=== PATIENT | female | born 1950 | race Caucasian/White ===

== ENCOUNTER 2018-09-14 18:11 | Inpatient (IN) | payer MEDICARE, OTHER ==
[~2018-09-14] VITALS: Ht 160 cm; Wt 69.2 kg
--- NOTE | 2018-09-14 18:20 | NUR ---
THIS PT ARRIVES FROM TODAY AFTER HER INTIAL VISIT FOR BILATERAL LEG SWELLING. PT WAS FOUND TO BE IN THE LOW 70%S ON ROOM AIR. PT WAS THEN SENT TO EMERGENCY ROOM. PT REPORTS THAT SHE HAS HAD THE LEGS SWELLING FOR ABOUT A WEEK WITH SOME DAYS BETTER AND SOME WORSE. PT DENIES ANY SOB OR CP AT THIS TIME. PT HAS CYNOSIS OF HANDS AND FEET. PT MICHELLE HAS RAPID BREATHING. PT REPORTS TAKING HER MEDICATIONS PERSCRIBED. PT CONNECTED TO ALL MONITORS AND CALL LIGHT IN REACH. AWAITING FURTHER ORDERS. PIV PLACED AND EKG COMPLETED.
--- NOTE | 2018-09-14 18:25 | NUR ---
BREAK RN: pt upright on gurney awake & comfortable, responds approp to staff, NAD, comfort measures provided, call light within reach.
[2018-09-14 18:34] LABS: BASOPHILS # (AUTO) 0.02 x10^3/uL (0-0.1); BASOPHILS % (AUTO) 0 % (0-1); EOSINOPHILS # (AUTO) 0.11 x10^3/uL (0-0.4); EOSINOPHILS % (AUTO) 2 % (1-7); LYMPHOCYTES % (AUTO) 29 % (22-44); MD NO; MEAN CORPUSCULAR HEMOGLOBIN 30.7 pg (27.0-34.8); MEAN CORPUSCULAR HGB CONC 32.7 g/dL (32.4-35.8); MEAN CORPUSCULAR VOLUME 93.9 fL (80-100); MEAN PLATELET VOLUME 8.4 fL (7.4-10.4); MONOCYTES # (AUTO) 0.53 x10^3/uL (0.2-0.8); MONOCYTES % (AUTO) 7 % (2-9); NEUTROPHILS # (AUTO) 4.48 x10^3/uL (1.8-6.8); NEUTROPHILS % (AUTO) 62 % (42-75); PLATELET COUNT 188 x10^3/uL (130-400); RED BLOOD COUNT 6.61 x10^6/uL (3.82-5.3); RED CELL DISTRIBUTION WIDTH 17.4 % (9.6-15.2)
[2018-09-14] MEDS ORDERED: ESTR42.58 VG (18:36)
[2018-09-14] MEDS ORDERED: GABA300C10 PO (18:36)
[2018-09-14] MEDS ORDERED: CARB1TAB22 PO (18:36)
[2018-09-14] MEDS ORDERED: ESCI20TA PO (18:36)
[2018-09-14] MEDS ORDERED: DICLOFENAC TP (18:36)
[2018-09-14] MEDS ORDERED: TEMA30CA PO (18:36)
[2018-09-14] MEDS ORDERED: ALPR1TAB5 PO (18:36)
[2018-09-14] MEDS ORDERED: CYCLOBENZAPINE PO (18:36)
[2018-09-14 18:43] LABS: ALBUMIN 3.6 g/dL (3.4-5.0); ANION GAP 4 mmol/L (5-15); CALCIUM 9.5 mg/dL (8.5-10.1); CHLORIDE 106 mmol/L (98-107)
[2018-09-14 18:50] LABS: ALANINE AMINOTRANSFERASE 61 U/L (12-78); ALKALINE PHOSPHATASE 317 U/L (45-117); BILIRUBIN,TOTAL 0.9 mg/dL (0.2-1.0); CREATININE 0.85 mg/dL (0.55-1.02); TOTAL PROTEIN 8.1 g/dL (6.4-8.2); TROPONIN I 0.027 ng/mL (0.000-0.045)
[2018-09-14] MEDS ORDERED: LABETALOL 5 MG/ML SYRINGE IVPush PRN (20:30)
[2018-09-14] MEDS ORDERED: ONDANSETRON ODT 4 MG PO PRN (20:30)
--- NOTE | 2018-09-14 20:32 | NUR ---
PT GIVEN A SNACK. PT TO BE ADMITTED. VSS. PT HAS NO OTHER NEEDS AT THIS TIME. CALL LIGHT IN REACH
[2018-09-14 21:31] VITALS: BP 158/117
[2018-09-14] MEDS: ENOXAPARIN 40 MG/0.4 ML SQ SCH (21:33)
[2018-09-14] MEDS: NICOTINE 14MG/24 HR PATCH.TD24 TD SCH (21:33)
[2018-09-14] MEDS: FUROSEMIDE 40 MG/4 ML IV SCH (21:33)
[2018-09-14] MEDS: ACETAMINOPHEN 325 MG TABLET PO PRN (23:28)
[2018-09-14] MEDS: LIDODERM 5% PATCH TD PRN (23:29)
[2018-09-14 23:33] VITALS: BP 134/78
[2018-09-15 00:52] VITALS: BP 146/82
[2018-09-15 01:06] LABS: TROPONIN I 0.042 ng/mL (0.000-0.045)
[2018-09-15 06:20] VITALS: BP 138/79
[2018-09-15 07:33] LABS: BASOPHILS # (AUTO) 0.02 x10^3/uL (0-0.1); BASOPHILS % (AUTO) 0 % (0-1); EOSINOPHILS # (AUTO) 0.17 x10^3/uL (0-0.4); EOSINOPHILS % (AUTO) 3 % (1-7); LYMPHOCYTES # (AUTO) 1.79 x10^3/uL (1-3.4); LYMPHOCYTES % (AUTO) 30 % (22-44); MD NO; MEAN CORPUSCULAR HEMOGLOBIN 30.8 pg (27.0-34.8); MEAN CORPUSCULAR HGB CONC 32.8 g/dL (32.4-35.8); MEAN CORPUSCULAR VOLUME 93.9 fL (80-100); MEAN PLATELET VOLUME 7.8 fL (7.4-10.4); MONOCYTES % (AUTO) 9 % (2-9); NEUTROPHILS # (AUTO) 3.41 x10^3/uL (1.8-6.8); NEUTROPHILS % (AUTO) 58 % (42-75); PLATELET COUNT 184 x10^3/uL (130-400); RED BLOOD COUNT 6.11 x10^6/uL (3.82-5.3); RED CELL DISTRIBUTION WIDTH 17.1 % (9.6-15.2)
[2018-09-15 07:43] LABS: ANION GAP 6 mmol/L (5-15); CALCIUM 8.7 mg/dL (8.5-10.1); CHLORIDE 108 mmol/L (98-107)
[2018-09-15 07:49] LABS: CREATININE 0.79 mg/dL (0.55-1.02)
[2018-09-15] MEDS: FUROSEMIDE 40 MG/4 ML IV SCH ×2 (08:44→16:38)
[2018-09-15] MEDS ORDERED: TEMPLATE NON-FORMULARY MED. (Escitalopram Oxalate** 20 MG) PO SCH (11:00)
[2018-09-15] MEDS ORDERED: TEMAZEPAM 30 MG CAPSULE PO PRN (11:00)
[2018-09-15] MEDS: GABAPENTIN 400 MG CAPSULE PO SCH ×3 (11:34→20:15)
[2018-09-15] MEDS: CARBIDOPA/LEVODOPA 25 MG/100 MG TABLET PO SCH ×3 (11:34→20:15)
[2018-09-15] MEDS: ACETAMINOPHEN 325 MG TABLET PO PRN ×2 (12:41→20:15)
[2018-09-15 13:23] LABS: AMPHETAMINE SCREEN, URINE Negative (Negative); BARBITURATE SCREEN, URINE Negative (Negative); BENZODIAZEPINE SCREEN, URINE Negative (Negative); CANNABINOID SCREEN, URINE Negative (Negative); COCAINE SCREEN, URINE Negative (Negative); METHADONE SCREEN, URINE Negative (Negative); OPIATE SCREEN, URINE Negative (Negative)
[2018-09-15 13:46] VITALS: BP 112/68
[2018-09-15 14:25] VITALS: BP 159/78
[2018-09-15 19:57] VITALS: BP 103/65
[2018-09-15] MEDS: ENOXAPARIN 40 MG/0.4 ML SQ SCH (20:13)
[2018-09-15] MEDS: NICOTINE 14MG/24 HR PATCH.TD24 TD SCH (20:15)
[2018-09-16 00:25] VITALS: BP 117/69
[2018-09-16] MEDS: ACETAMINOPHEN 325 MG TABLET PO PRN ×3 (02:30→21:13)
[2018-09-16 05:59] LABS: BASOPHILS # (AUTO) 0.02 x10^3/uL (0-0.1); BASOPHILS % (AUTO) 0 % (0-1); EOSINOPHILS # (AUTO) 0.08 x10^3/uL (0-0.4); EOSINOPHILS % (AUTO) 1 % (1-7); LYMPHOCYTES # (AUTO) 1.97 x10^3/uL (1-3.4); LYMPHOCYTES % (AUTO) 28 % (22-44); MD NO; MEAN CORPUSCULAR HEMOGLOBIN 30.4 pg (27.0-34.8); MEAN CORPUSCULAR HGB CONC 32.6 g/dL (32.4-35.8); MEAN CORPUSCULAR VOLUME 93.4 fL (80-100); MEAN PLATELET VOLUME 7.8 fL (7.4-10.4); MONOCYTES % (AUTO) 7 % (2-9); NEUTROPHILS # (AUTO) 4.39 x10^3/uL (1.8-6.8); NEUTROPHILS % (AUTO) 63 % (42-75); PLATELET COUNT 179 x10^3/uL (130-400); RED BLOOD COUNT 6.16 x10^6/uL (3.82-5.3); RED CELL DISTRIBUTION WIDTH 16.9 % (9.6-15.2)
[2018-09-16 06:08] LABS: CHLORIDE 105 mmol/L (98-107)
[2018-09-16 06:13] LABS: ANION GAP 7 mmol/L (5-15); CALCIUM 8.5 mg/dL (8.5-10.1); CREATININE 0.67 mg/dL (0.55-1.02)
[2018-09-16 07:36] VITALS: BP 134/78
[2018-09-16] MEDS: FUROSEMIDE 40 MG/4 ML IV SCH ×2 (07:55→18:11)
[2018-09-16] MEDS: GABAPENTIN 400 MG CAPSULE PO SCH ×3 (07:56→20:06)
[2018-09-16] MEDS ORDERED: POTASSIUM CHLORIDE 20 MEQ TAB.ER.PRT PO ONE (08:00)
[2018-09-16] MEDS: ASPIRIN 81 MG TABLET EC PO SCH (08:11)
[2018-09-16] MEDS: CARBIDOPA/LEVODOPA 25 MG/100 MG TABLET PO SCH ×3 (08:11→20:06)
[2018-09-16] MEDS: CITALOPRAM 20 MG TABLET PO SCH (10:59)
[2018-09-16 13:05] VITALS: BP 118/73
[2018-09-16] MEDS: NICOTINE 14MG/24 HR PATCH.TD24 TD SCH (14:39)
[2018-09-16 19:14] VITALS: BP 125/75
[2018-09-16] MEDS: ENOXAPARIN 40 MG/0.4 ML SQ SCH (20:06)
[2018-09-17 01:24] VITALS: BP 136/74
[2018-09-17 05:18] LABS: BASOPHILS # (AUTO) 0.04 x10^3/uL (0-0.1); BASOPHILS % (AUTO) 1 % (0-1); EOSINOPHILS # (AUTO) 0.09 x10^3/uL (0-0.4); EOSINOPHILS % (AUTO) 1 % (1-7); LYMPHOCYTES # (AUTO) 2.22 x10^3/uL (1-3.4); LYMPHOCYTES % (AUTO) 34 % (22-44); MD NO; MEAN CORPUSCULAR HEMOGLOBIN 30.5 pg (27.0-34.8); MEAN CORPUSCULAR HGB CONC 32.6 g/dL (32.4-35.8); MEAN CORPUSCULAR VOLUME 93.8 fL (80-100); MONOCYTES # (AUTO) 0.51 x10^3/uL (0.2-0.8); MONOCYTES % (AUTO) 8 % (2-9); NEUTROPHILS # (AUTO) 3.72 x10^3/uL (1.8-6.8); NEUTROPHILS % (AUTO) 57 % (42-75); PLATELET COUNT 180 x10^3/uL (130-400); RED BLOOD COUNT 6.38 x10^6/uL (3.82-5.3); RED CELL DISTRIBUTION WIDTH 16.3 % (9.6-15.2)
[2018-09-17 05:28] LABS: CHLORIDE 106 mmol/L (98-107)
[2018-09-17 05:42] LABS: ALANINE AMINOTRANSFERASE 64 U/L (12-78); ALBUMIN 2.9 g/dL (3.4-5.0); ALKALINE PHOSPHATASE 232 U/L (45-117); ANION GAP 6 mmol/L (5-15); BILIRUBIN,TOTAL 0.6 mg/dL (0.2-1.0); CALCIUM 8.2 mg/dL (8.5-10.1); CREATININE 0.74 mg/dL (0.55-1.02); TOTAL PROTEIN 6.4 g/dL (6.4-8.2)
[2018-09-17] MEDS: ASPIRIN 81 MG TABLET EC PO SCH (05:46)
[2018-09-17 07:10] VITALS: BP 145/83
[2018-09-17] MEDS ORDERED: POTASSIUM CHLORIDE 20 MEQ TAB.ER.PRT PO ONE (07:30)
[2018-09-17] MEDS: GABAPENTIN 400 MG CAPSULE PO SCH ×3 (08:24→22:03)
[2018-09-17] MEDS: CARBIDOPA/LEVODOPA 25 MG/100 MG TABLET PO SCH ×3 (08:26→22:03)
[2018-09-17] MEDS: CITALOPRAM 20 MG TABLET PO SCH (08:27)
[2018-09-17] MEDS: FUROSEMIDE 40 MG/4 ML IV SCH ×2 (08:28→18:13)
[2018-09-17 10:00] VITALS: BP 100/65
[2018-09-17] MEDS: ACETAMINOPHEN 325 MG TABLET PO PRN ×2 (10:11→19:24)
[2018-09-17 11:08] VITALS: BP 115/73
[2018-09-17 13:00] VITALS: BP 120/68
[2018-09-17] MEDS: MULTIVITAMIN 1 TABLET PO SCH (13:44)
[2018-09-17 19:25] VITALS: BP 126/78
[2018-09-17] MEDS: ENOXAPARIN 40 MG/0.4 ML SQ SCH (19:53)
[2018-09-17] MEDS: NICOTINE 14MG/24 HR PATCH.TD24 TD SCH (19:53)
[2018-09-18 03:01] VITALS: BP 135/85
[2018-09-18] MEDS: ASPIRIN 81 MG TABLET EC PO SCH (05:09)
[2018-09-18] MEDS: ACETAMINOPHEN 325 MG TABLET PO PRN ×3 (05:09→15:34)
[2018-09-18 05:36] LABS: BASOPHILS # (AUTO) 0.05 x10^3/uL (0-0.1); BASOPHILS % (AUTO) 1 % (0-1); EOSINOPHILS # (AUTO) 0.07 x10^3/uL (0-0.4); EOSINOPHILS % (AUTO) 1 % (1-7); LYMPHOCYTES # (AUTO) 2.74 x10^3/uL (1-3.4); LYMPHOCYTES % (AUTO) 33 % (22-44); MD NO; MEAN CORPUSCULAR HEMOGLOBIN 30.6 pg (27.0-34.8); MEAN CORPUSCULAR HGB CONC 32.7 g/dL (32.4-35.8); MEAN CORPUSCULAR VOLUME 93.6 fL (80-100); MEAN PLATELET VOLUME 7.8 fL (7.4-10.4); MONOCYTES # (AUTO) 0.66 x10^3/uL (0.2-0.8); MONOCYTES % (AUTO) 8 % (2-9); NEUTROPHILS # (AUTO) 4.93 x10^3/uL (1.8-6.8); NEUTROPHILS % (AUTO) 58 % (42-75); PLATELET COUNT 189 x10^3/uL (130-400); RED BLOOD COUNT 6.32 x10^6/uL (3.82-5.3); RED CELL DISTRIBUTION WIDTH 16.7 % (9.6-15.2)
[2018-09-18 05:41] LABS: ALANINE AMINOTRANSFERASE 75 U/L (12-78); ALBUMIN 2.9 g/dL (3.4-5.0); ANION GAP 4 mmol/L (5-15); CALCIUM 8.7 mg/dL (8.5-10.1); CHLORIDE 106 mmol/L (98-107); CREATININE 0.74 mg/dL (0.55-1.02)
[2018-09-18 05:44] LABS: ALKALINE PHOSPHATASE 214 U/L (45-117); BILIRUBIN,TOTAL 0.7 mg/dL (0.2-1.0); TOTAL PROTEIN 6.8 g/dL (6.4-8.2)
[2018-09-18 07:00] VITALS: BP 126/78
[2018-09-18] MEDS: GABAPENTIN 400 MG CAPSULE PO SCH ×3 (10:06→20:03)
[2018-09-18] MEDS: CITALOPRAM 20 MG TABLET PO SCH (10:06)
[2018-09-18] MEDS: CARBIDOPA/LEVODOPA 25 MG/100 MG TABLET PO SCH ×3 (10:07→20:04)
[2018-09-18] MEDS: MULTIVITAMIN 1 TABLET PO SCH (10:07)
[2018-09-18 14:00] VITALS: BP 107/65
[2018-09-18 19:14] VITALS: BP 105/70
[2018-09-18] MEDS: NICOTINE 14MG/24 HR PATCH.TD24 TD SCH (20:05)
[2018-09-18] MEDS: ENOXAPARIN 40 MG/0.4 ML SQ SCH (20:05)
[2018-09-19 00:49] VITALS: BP 107/67
[2018-09-19] MEDS: ASPIRIN 81 MG TABLET EC PO SCH (05:19)
[2018-09-19 06:56] VITALS: BP 128/73
[2018-09-19] MEDS: GABAPENTIN 400 MG CAPSULE PO SCH ×3 (09:13→21:28)
[2018-09-19] MEDS: MULTIVITAMIN 1 TABLET PO SCH (09:14)
[2018-09-19] MEDS: CITALOPRAM 20 MG TABLET PO SCH (09:14)
[2018-09-19] MEDS: CARBIDOPA/LEVODOPA 25 MG/100 MG TABLET PO SCH ×3 (09:14→21:28)
[2018-09-19 13:22] VITALS: BP 123/67
[2018-09-19 19:34] VITALS: BP 116/81
[2018-09-19] MEDS: ENOXAPARIN 40 MG/0.4 ML SQ SCH (21:27)
[2018-09-19] MEDS: NICOTINE 14MG/24 HR PATCH.TD24 TD SCH (21:27)
[2018-09-19] MEDS: DOCUSATE 100 MG CAPSULE PO PRN (21:37)
[2018-09-20 00:57] VITALS: BP 110/64
[2018-09-20] MEDS: LIDODERM 5% PATCH TD PRN (04:34)
[2018-09-20] MEDS: ASPIRIN 81 MG TABLET EC PO SCH (05:16)
[2018-09-20 05:55] LABS: BASOPHILS # (AUTO) 0.06 x10^3/uL (0-0.1); BASOPHILS % (AUTO) 1 % (0-1); EOSINOPHILS # (AUTO) 0.11 x10^3/uL (0-0.4); EOSINOPHILS % (AUTO) 2 % (1-7); LYMPHOCYTES # (AUTO) 2.48 x10^3/uL (1-3.4); LYMPHOCYTES % (AUTO) 38 % (22-44); MD NO; MEAN CORPUSCULAR HEMOGLOBIN 30.6 pg (27.0-34.8); MEAN CORPUSCULAR HGB CONC 32.7 g/dL (32.4-35.8); MEAN CORPUSCULAR VOLUME 93.6 fL (80-100); MEAN PLATELET VOLUME 7.9 fL (7.4-10.4); MONOCYTES # (AUTO) 0.49 x10^3/uL (0.2-0.8); MONOCYTES % (AUTO) 8 % (2-9); NEUTROPHILS # (AUTO) 3.42 x10^3/uL (1.8-6.8); NEUTROPHILS % (AUTO) 52 % (42-75); PLATELET COUNT 193 x10^3/uL (130-400); RED BLOOD COUNT 5.83 x10^6/uL (3.82-5.3); RED CELL DISTRIBUTION WIDTH 16.4 % (9.6-15.2)
[2018-09-20 06:09] LABS: CHLORIDE 109 mmol/L (98-107)
[2018-09-20 06:14] LABS: ANION GAP 4 mmol/L (5-15); CALCIUM 8.4 mg/dL (8.5-10.1)
[2018-09-20 07:13] VITALS: BP 114/71
[2018-09-20] MEDS: MULTIVITAMIN 1 TABLET PO SCH (08:31)
[2018-09-20] MEDS: DOCUSATE 100 MG CAPSULE PO PRN (08:31)
[2018-09-20] MEDS: CARBIDOPA/LEVODOPA 25 MG/100 MG TABLET PO SCH ×2 (08:32→16:30)
[2018-09-20] MEDS: CITALOPRAM 20 MG TABLET PO SCH (08:32)
[2018-09-20] MEDS: GABAPENTIN 400 MG CAPSULE PO SCH ×2 (08:32→16:30)
[2018-09-20] MEDS ORDERED: FUROSEMIDE 40 MG TABLET PO SCH (09:00)
[2018-09-20] MEDS ORDERED: ENALAPRIL 2.5MG TABLET PO SCH (09:00)
[2018-09-20] MEDS ORDERED: NICO-486 TD (13:06)
[2018-09-20] MEDS ORDERED: LIDO700A20 TD (13:06)
[2018-09-20] MEDS ORDERED: FURO40TA6 PO (13:06)
[2018-09-20] MEDS ORDERED: ENAL2.5T PO (13:08)
[2018-09-20 14:07] VITALS: BP 103/62
[2018-09-20] MEDS ORDERED: GABA-827 PO (16:55)
[2018-09-20] MEDS ORDERED: CITA20TA9 PO (16:55)
[2018-09-21] MEDS ORDERED: morphine pain pump (01:39)
== END 2018-09-20 18:53 | disposition home health service (06) | DRG 291 ==
LOC: ED 19:27 → EDIP 19:28 → 5SO 20:56
PROVIDERS: ADMIT Internal Medicine; ATTEND Internal Medicine
DX: I11.0 Hypertensive heart disease with heart failure (principal); J96.01 Acute respiratory failure with hypoxia; F11.20 Opioid dependence, uncomplicated; E87.3 Alkalosis; I50.9 Heart failure, unspecified; D75.1 Secondary polycythemia; J44.9 Chronic obstructive pulmonary disease, unspecified; F17.210 Nicotine dependence, cigarettes, uncomplicated; Z82.49 Family history of ischemic heart disease and other diseases of the circulatory system; G89.4 Chronic pain syndrome; F41.9 Anxiety disorder, unspecified; F32.9 Major depressive disorder, single episode, unspecified; Z71.6 Tobacco abuse counseling
CPT/HCPCS: 36415; 71045; 80048; 80053; 80307; 82375; 82668; 83880; 84484; 85025; 85379; 93005; 93306; 99195; 99285; G0378; J1650; J1940

== ENCOUNTER 2018-09-21 01:09 | Emergency (ER) | payer MEDICARE ==
[~2018-09-21] VITALS: Ht 160 cm; Wt 53.0 kg
[~2018-09-21 01:09] MED LIST: ALPR1TAB5 PO; CARB1TAB22 PO; CITA20TA9 PO; CYCLOBENZAPINE PO; DICLOFENAC TP; ENAL2.5T PO; ESCI20TA PO; ESTR42.58 VG; FURO40TA6 PO; GABA-827 PO; GABA300C10 PO; LIDO700A20 TD; NICO-486 TD; TEMA30CA PO
--- NOTE | 2018-09-21 01:19 | NUR ---
assisted pt to rr with o2 in use
--- NOTE | 2018-09-21 01:29 | NUR ---
bib remsa from home with c/o lbp x 1 day, pt was d/c from hospital earlier today for new onset chf. 94% on 4ln/c, hr-68, b/p-132/76. pt sitting up at side of bed moaning, monitors applied, siderails up x2, call light within reach. pa updated regarding pt's pain level.
[2018-09-21] MEDS ORDERED: morphine pain pump (01:39)
[2018-09-21] MEDS ORDERED: METHYLNALTREXONE 12 MG/0.6 ML SYR SQ ONE (01:42)
--- NOTE | 2018-09-21 01:48 | NUR ---
pt assisted up to rr with o2 in use. medicated per aug. pt to xray
[2018-09-21 01:49] VITALS: BP 175/89
[2018-09-21] MEDS ORDERED: METHYLNALTREXONE 12 MG/0.6 ML SQ ONE (02:00)
== END 2018-09-21 02:39 | disposition home or self-care (01) ==
LOC: ED 01:54
DX: K59.00 Constipation, unspecified (principal); M54.9 Dorsalgia, unspecified; R10.9 Unspecified abdominal pain; F17.210 Nicotine dependence, cigarettes, uncomplicated
CPT/HCPCS: 74021; 96372; 99283

== ENCOUNTER 2018-11-29 08:22 | Outpatient (CLI) | payer MEDICARE ==
[~2018-11-29 08:22] MED LIST changes: +morphine pain pump
== END 2018-11-29 23:59 | disposition home or self-care (01) ==
LOC: CFH 08:22
PROVIDERS: ATTEND Registered Nurse
DX: Z12.2 Encounter for screening for malignant neoplasm of respiratory organs (principal); J43.9 Emphysema, unspecified; M47.814 Spondylosis without myelopathy or radiculopathy, thoracic region; J84.10 Pulmonary fibrosis, unspecified; I25.10 Atherosclerotic heart disease of native coronary artery without angina pectoris; R91.1 Solitary pulmonary nodule; Z87.891 Personal history of nicotine dependence
CPT/HCPCS: G0297

== ENCOUNTER → 2018-12-14 | Outpatient (CLI) | payer MEDICARE ==
[~2018-12-14] MED LIST changes: +REGADENOSON 0.4 MG/5 ML SYRINGE ONE
== END | disposition home or self-care (01) ==
LOC: CFH 07:32
PROVIDERS: ATTEND Internal Medicine Cardiovascular Disease
DX: I50.31 Acute diastolic (congestive) heart failure (principal)
CPT/HCPCS: 78452; 93017; A9502; J2785

== ENCOUNTER 2019-01-27 08:35 | Outpatient (CLI) | payer MEDICARE | END 2019-01-27 23:59 | disposition home or self-care (01) | LOC: CFH 08:35 | DX: Z12.31 Encounter for screening mammogram for malignant neoplasm of breast (principal); Z13.820 Encounter for screening for osteoporosis; N95.9 Unspecified menopausal and perimenopausal disorder | CPT/HCPCS: 77080; 77067 ==

== ENCOUNTER 2019-04-27 13:01 | Outpatient (CLI) | payer MEDICARE ==
[~2019-04-27 13:01] MED LIST changes: +AMITIZA PO; +ASPIRIN PO; +ESTRADIOL PO; +GABAPENTIN PEG; -REGADENOSON 0.4 MG/5 ML SYRINGE ONE; +[UNRECOGNIZED DRUG - OTHER]
== END 2019-04-27 23:59 | disposition home or self-care (01) ==
LOC: CVU 13:01
PROVIDERS: ATTEND Internal Medicine
DX: I08.1 Rheumatic disorders of both mitral and tricuspid valves (principal); J44.9 Chronic obstructive pulmonary disease, unspecified; J84.89 Other specified interstitial pulmonary diseases; R09.02 Hypoxemia; R91.1 Solitary pulmonary nodule; E11.8 Type 2 diabetes mellitus with unspecified complications; B39.9 Histoplasmosis, unspecified; R94.2 Abnormal results of pulmonary function studies; Z87.891 Personal history of nicotine dependence
CPT/HCPCS: 0399T; 93306; 94060; 94618; 94726; 94729

== ENCOUNTER 2019-06-02 12:50 | Emergency (ER) | payer MEDICARE ==
[~2019-06-02] VITALS: Ht 160 cm; Wt 58.4 kg
--- NOTE | 2019-06-02 13:57 | NUR ---
PT IN BED, ATTACHED TO MONITORS. PROVIDED WITH WARM BLANKETS. DENIES ANY CURRENT NEEDS OR CONCERNS. ERP AT BEDSIDE. CALL LIGHT IN REACH.
--- NOTE | 2019-06-02 14:09 | NUR ---
BEDSIDE REPORT RECEIVED FROM CHRISTIANA MACIEL. PLAN OF CARE DISCUSSED. VSS, PATIENT IS CHRONICALLY BRADYCARDIC
--- NOTE | 2019-06-02 15:21 | NUR ---
PATIENT BACK FROM CT. RESTING ON JANI WHITTEN NAD, CALL LIGHT IN REACH.
[2019-06-02 16:00] VITALS: BP 131/62
== END 2019-06-02 16:12 | disposition home or self-care (01) ==
LOC: ED 15:18
DX: S00.03XA Contusion of scalp, initial encounter (principal); R51 Headache; I11.0 Hypertensive heart disease with heart failure; I50.9 Heart failure, unspecified; X58.XXXA Exposure to other specified factors, initial encounter; Y93.89 Activity, other specified; Y92.89 Other specified places as the place of occurrence of the external cause; Y99.8 Other external cause status
CPT/HCPCS: 70450; 99284

== ENCOUNTER 2019-07-25 08:58 | Outpatient (CLI) | payer MEDICARE | END 2019-07-25 23:59 | disposition home or self-care (01) | LOC: CFH 08:58 | PROVIDERS: ATTEND Registered Nurse | DX: Z12.2 Encounter for screening for malignant neoplasm of respiratory organs (principal); J84.9 Interstitial pulmonary disease, unspecified; J43.2 Centrilobular emphysema; J84.10 Pulmonary fibrosis, unspecified; R91.1 Solitary pulmonary nodule; D71 Functional disorders of polymorphonuclear neutrophils; Z87.891 Personal history of nicotine dependence | CPT/HCPCS: G0297 ==

== ENCOUNTER 2019-12-11 13:46 | Outpatient (CLI) | payer MEDICARE, OTHER ==
[~2019-12-11 13:46] MED LIST changes: -ENAL2.5T PO; +ENAL2.5T8 PO
== END 2019-12-11 23:59 | disposition home or self-care (01) ==
LOC: RAD 13:46
PROVIDERS: ATTEND Internal Medicine
DX: M16.0 Bilateral primary osteoarthritis of hip (principal)
CPT/HCPCS: 73523

== ENCOUNTER → 2020-03-07 | Outpatient (CLI) | payer MEDICARE | END | disposition home or self-care (01) | LOC: CFH 14:44 | PROVIDERS: ATTEND Registered Nurse | DX: Z12.31 Encounter for screening mammogram for malignant neoplasm of breast (principal); Z12.2 Encounter for screening for malignant neoplasm of respiratory organs; R91.1 Solitary pulmonary nodule; J43.2 Centrilobular emphysema; J84.9 Interstitial pulmonary disease, unspecified; Z87.891 Personal history of nicotine dependence | CPT/HCPCS: 77063; 77067; G0297 ==